=== PATIENT | male | born 1950 | race Caucasian/White ===

== ENCOUNTER 2019-03-05 13:50 | Emergency (ER) | payer MEDICARE, MEDICAID ==
[~2019-03-05] VITALS: Ht 172.7 cm; Wt 70.4 kg
[~2019-03-05 13:50] MED LIST: ENOX80SY7 SQ; LISI-600 PO; LOP25T PO; NIFE90TA61 PO; PANT-47 PO
[2019-03-05 15:11] VITALS: BP 147/77
[2019-03-05 15:29] LABS: BASOPHILS # (AUTO) 0.1 X10'3 (0-0.2); BASOPHILS % (AUTO) 0.5 % (0-1); EOSINOPHILS # (AUTO) 0.1 X10'3 (0-0.9); EOSINOPHILS % (AUTO) 0.4 % (0-6); HEMATOCRIT 41.5 % (42.0-52.0); LYMPHOCYTES # (AUTO) 2.3 X10'3 (1.1-4.8); LYMPHOCYTES % (AUTO) 17.9 % (21-51); MEAN CORPUSCULAR HEMOGLOBIN 30.5 PG (27.0-31.0); MEAN CORPUSCULAR HGB CONC 33.7 g/dL (33.0-36.5); MEAN CORPUSCULAR VOLUME 90.6 FL (78-98); MEAN PLATELET VOLUME 7.4 FL (7.4-10.4); MONOCYTES # (AUTO) 0.7 X10'3 (0-0.9); MONOCYTES % (AUTO) 5.6 % (2-12); NEUTROPHILS # (AUTO) 9.8 X10'3 (1.8-7.7); NEUTROPHILS % (AUTO) 75.6 % (42-75); PLATELET COUNT 418 X10'3 (140-440); RED BLOOD COUNT 4.58 X10'6 (4.70-6.10); RED CELL DISTRIBUTION WIDTH 13.9 % (11.5-14.5); WHITE BLOOD COUNT 12.9 X10'3 (4.5-11.0)
[2019-03-05 15:43] LABS: ALANINE AMINOTRANSFERASE 44 U/L (12-78); ALBUMIN 2.9 G/DL (3.4-5.0); ALBUMIN/GLOBULIN RATIO 0.7 (1.1-1.5); ALKALINE PHOSPHATASE 102 IU/L (46-116); ANION GAP 8 (8-16); ASPARTATE AMINO TRANSFERASE 23 U/L (10-37); BILIRUBIN,TOTAL 0.3 MG/DL (0.1-1.0); BLOOD UREA NITROGEN 23 MG/DL (7-18); BUN/CREATININE RATIO 21.9 (5.4-32.0); CALCIUM 8.6 MG/DL (8.5-10.1); CHLORIDE 107 MMOL/L (99-107); CREATININE 1.05 MG/DL (0.60-1.10); GLUCOSE 102 MG/DL (70-104); POTASSIUM 4.4 MMOL/L (3.5-5.1); SODIUM 140 MMOL/L (135-145); TOTAL CARBON DIOXIDE 25.3 MMOL/L (24-32); TOTAL PROTEIN 6.8 G/DL (6.4-8.2); eGFR 71 ML/MIN
[2019-03-05 15:50] LABS: PARTIAL THROMBOPLASTIN TIME 60 SECONDS (22-32)
[2019-03-05] MEDS ORDERED: phytonadione inj. 2 MG in normal saline 100ml IV soln 99.8 ML IV ONE (16:05)
[2019-03-05] MEDS ORDERED: phytonadione 10 MG/1 ML amp PO ONE (16:10)
--- NOTE | 2019-03-05 16:53 | NUR ---
ADMIN MEDICATION ORDERED. PT STATES HE WILL TAKE THE BUS TO THE PLACE HE IS STAYING TONIGHT. DOESNT NEED A RIDE. PT GIVEN A SACK LUNCH.
== END 2019-03-05 17:01 | disposition home or self-care (01) ==
LOC: ER 13:51
DX: R79.1 Abnormal coagulation profile (principal); I25.10 Atherosclerotic heart disease of native coronary artery without angina pectoris; I11.0 Hypertensive heart disease with heart failure; I50.9 Heart failure, unspecified; F15.90 Other stimulant use, unspecified, uncomplicated; Z95.1 Presence of aortocoronary bypass graft; Z98.890 Other specified postprocedural states; Z86.718 Personal history of other venous thrombosis and embolism; Z79.899 Other long term (current) drug therapy; Z79.01 Long term (current) use of anticoagulants
CPT/HCPCS: 36415; 80053; 85025; 85610; 85730; 99283; J3430

== ENCOUNTER 2022-04-30 11:39 | Emergency (ER) | payer BC, MEDICARE ==
[~2022-04-30] VITALS: Ht 172.7 cm; Wt 72.7 kg
[~2022-04-30 11:39] MED LIST changes: -LISI-600 PO; +LISI20TA28 PO
[2022-04-30 12:40] LABS: BASOPHILS # (AUTO) 0.1 X10'3 (0-0.2); BASOPHILS % (AUTO) 0.7 % (0-1); EOSINOPHILS # (AUTO) 0.1 X10'3 (0-0.9); EOSINOPHILS % (AUTO) 0.7 % (0-6); HEMATOCRIT 34.1 % (42.0-52.0); LYMPHOCYTES # (AUTO) 1.1 X10'3 (1.1-4.8); LYMPHOCYTES % (AUTO) 11.1 % (21-51); MEAN CORPUSCULAR HGB CONC 32.3 g/dL (33.0-36.5); MEAN PLATELET VOLUME 7.6 FL (7.4-10.4); MONOCYTES # (AUTO) 0.7 X10'3 (0-0.9); MONOCYTES % (AUTO) 7.5 % (2-12); NEUTROPHILS # (AUTO) 7.7 X10'3 (1.8-7.7); PLATELET COUNT 348 X10'3 (140-440); RED BLOOD COUNT 3.79 X10'6 (4.70-6.10); RED CELL DISTRIBUTION WIDTH 14.2 % (11.5-14.5); WHITE BLOOD COUNT 9.6 X10'3 (4.5-11.0)
[2022-04-30 12:48] LABS: ALANINE AMINOTRANSFERASE 32 U/L (12-78); ALBUMIN 2.8 G/DL (3.4-5.0); ALBUMIN/GLOBULIN RATIO 0.8 (1.1-1.5); ALKALINE PHOSPHATASE 107 IU/L (46-116); ANION GAP 10 (8-16); ASPARTATE AMINO TRANSFERASE 34 U/L (10-37); BILIRUBIN,TOTAL 0.4 MG/DL (0.1-1.0); BLOOD UREA NITROGEN 27 MG/DL (7-18); BUN/CREATININE RATIO 20.3 (5.4-32.0); CALCIUM 8.6 MG/DL (8.5-10.1); CHLORIDE 108 MMOL/L (99-107); CREATININE 1.33 MG/DL (0.60-1.10); GLUCOSE 147 MG/DL (70-104); POTASSIUM 3.8 MMOL/L (3.5-5.1); SODIUM 141 MMOL/L (135-145); TOTAL CARBON DIOXIDE 23.3 MMOL/L (24-32); TOTAL PROTEIN 6.2 G/DL (6.4-8.2); eGFR 53 ML/MIN
[2022-04-30 17:21] VITALS: BP 142/86
--- NOTE | 2022-04-30 17:34 | NUR ---
Bilateral DP pulses located by Doppler. Area marked with skin marker.
[2022-04-30 17:39] LABS: CLARITY,URINE CLOUDY (Clear); COLOR,URINE YELLOW (Yellow); GLUCOSE, URINE NEGATIVE (Neg); KETONES,URINE NEGATIVE (Neg); LEUKOCYTE ESTERASE ,URINE MODERATE (Neg); NITRITES, URINE POSITIVE (Neg); OCCULT BLOOD,URINE TRACE-INTACT (Neg); PH,URINE 5.5 (4.8-8.0); PROTEIN,URINE 100 mg/dl (Neg); UROBILINOGEN,URINE 0.2 E.U/dL (0.2-1.0)
[2022-04-30 17:40] LABS: UA COLLECTION TYPE CLN CATCH MIDSTREAM
[2022-04-30 17:45] LABS: BACTERIA,URINE 2+ /HPF (Neg); RBC,URINE 0-2 /HPF (0-2); WBC,URINE TNTC /HPF (0-4)
[2022-04-30 17:46] LABS: SQUAMOUS EPITHELIAL CELL,UR FEW /LPF (FEW); WBC CLUMPS,URINE MANY /HPF (NEGATIVE)
[2022-04-30 19:00] LABS: URINE AMPHETAMINE SCREEN POSITIVE (Neg); URINE BARBITUATE SCREEN NEGATIVE (Neg); URINE BENZODIAZEPINES SCREEN NEGATIVE (Neg); URINE COCAINE SCREEN NEGATIVE (Neg); URINE METHADONE SCREEN NEGATIVE (Neg); URINE OPIATE SCREEN POSITIVE (Neg); URINE PHENCYCLIDINE SCREEN NEGATIVE (Neg)
== END 2022-04-30 20:16 | disposition left against medical advice (07) ==
LOC: ER 11:40
DX: M79.674 Pain in right toe(s) (principal); M79.675 Pain in left toe(s); M79.89 Other specified soft tissue disorders; I11.0 Hypertensive heart disease with heart failure; I50.9 Heart failure, unspecified; F17.200 Nicotine dependence, unspecified, uncomplicated; F15.20 Other stimulant dependence, uncomplicated; Z59.00 Homelessness unspecified; Z56.0 Unemployment, unspecified
CPT/HCPCS: 36415; 73630; 80053; 80305; 81001; 83605; 84145; 85025; 87040; 87077; 87088; 87186; 93005; 99285